=== PATIENT | male | born 1960 | race Caucasian/White ===

== ENCOUNTER 2022-12-24 18:46 | Emergency (ER) | payer BC, OTHER ==
[2022-12-24 19:07] VITALS: BP 126/80; PULSE 78; RESP 18; TEMP 98.6; BMI 30.4
[2022-12-24] MEDS ORDERED: RABIES IMMUNE GLOBULIN 300 UNITS/1 ML VIAL IM ONE (19:10)
[2022-12-24] MEDS ORDERED: RABIES VACCINE (PCEC)/PF 2.5 UNIT/VIAL IM ONE ×2 (19:15→19:19)
[2022-12-24] MEDS ORDERED: RABIES IMMUNE GLOBULIN 300 UNITS/1 ML VIAL ONE (19:19)
== END 2022-12-24 20:16 | disposition home or self-care (01) ==
LOC: FER 18:46
PROC: 3E0234Z Introduction of Serum, Toxoid and Vaccine into Muscle, Percutaneous Approach (ICD-10-PCS; principal; 2022-12-24)
PROC: 3E0234Z Introduction of Serum, Toxoid and Vaccine into Muscle, Percutaneous Approach (ICD-10-PCS; 2022-12-24)
DX: Z20.3 Contact with and (suspected) exposure to rabies (principal)
CPT/HCPCS: 90375; 90675; 99284-25

== ENCOUNTER 2022-12-27 14:17 | Emergency (ER) | payer OTHER ==
[2022-12-27] MEDS ORDERED: RABIES VACCINE (PCEC)/PF 2.5 UNIT/VIAL IM ONE ×2 (14:21→14:31)
[2022-12-27 14:31] VITALS: BP 113/70; PULSE 95; RESP 16; TEMP 97.8; BMI 30.7
== END 2022-12-27 14:46 | disposition home or self-care (01) ==
LOC: FER 14:17
PROC: 3E0234Z Introduction of Serum, Toxoid and Vaccine into Muscle, Percutaneous Approach (ICD-10-PCS; principal; 2022-12-27)
DX: Z20.3 Contact with and (suspected) exposure to rabies (principal)
CPT/HCPCS: 90675; 99281-25